=== PATIENT | female | born 1975 | race African-American/Black ===

== ENCOUNTER 2019-01-05 23:42 | Emergency (ER) | payer MEDICAID ==
[~2019-01-05] VITALS: Ht 160 cm; Wt 68.0 kg
[2019-01-05 23:51] VITALS: BP 122/75
== END 2019-01-05 23:43 | disposition left against medical advice (07) ==
LOC: ER 23:42
DX: M25.561 Pain in right knee (principal); Z53.21 Procedure and treatment not carried out due to patient leaving prior to being seen by health care provider

== ENCOUNTER 2019-01-06 03:38 | Emergency (ER) | payer MEDICAID ==
[~2019-01-06] VITALS: Ht 160 cm; Wt 68.0 kg
[2019-01-06] MEDS ORDERED: KETOROLAC 60MG/2ML VIAL IM STA (06:53)
[2019-01-06 08:27] VITALS: BP 120/72
== END 2019-01-06 08:31 | disposition home or self-care (01) ==
LOC: ER 03:38
DX: M25.561 Pain in right knee (principal); J45.909 Unspecified asthma, uncomplicated; F12.10 Cannabis abuse, uncomplicated; Z90.49 Acquired absence of other specified parts of digestive tract; V43.62XA Car passenger injured in collision with other type car in traffic accident, initial encounter; Y93.89 Activity, other specified; Y92.488 Other paved roadways as the place of occurrence of the external cause
CPT/HCPCS: 73562; 99283

== ENCOUNTER 2019-11-03 06:07 | Emergency (ER) | payer MEDICAID, OTHER | END 2019-11-03 06:58 | disposition left against medical advice (07) | LOC: ER 06:07 | DX: Z53.21 Procedure and treatment not carried out due to patient leaving prior to being seen by health care provider (principal) ==

== ENCOUNTER 2020-01-04 01:21 | Emergency (ER) | payer MEDICAID, OTHER ==
[~2020-01-04] VITALS: Ht 160 cm; Wt 75.0 kg
[2020-01-04] MEDS ORDERED: SODIUM CHLORIDE 0.9% 1,000 ML IV ONE (01:56)
[2020-01-04] MEDS ORDERED: DIPHENHYDRAMINE 50MG/ML VIAL IV ONE (02:00)
[2020-01-04] MEDS ORDERED: EPINEPHRINE 1:1000 1 MG/ML AMP SUBCUT ONE (02:00)
[2020-01-04] MEDS ORDERED: METHYLPREDNISOLONE SOD SUCC 125 MG/2 ML VIAL IV ONE (02:00)
[2020-01-04] MEDS ORDERED: ALBUTEROL 6.7GM HFA INHALER ORI ONE (02:00)
[2020-01-04] MEDS ORDERED: ALBUTEROL (0.083%) 2.5MG/3ML NEB HHN STA (02:06)
[2020-01-04 04:52] VITALS: BP 143/75
== END 2020-01-04 04:54 | disposition home or self-care (01) ==
LOC: ER 01:21
DX: J30.81 Allergic rhinitis due to animal (cat) (dog) hair and dander (principal); F12.10 Cannabis abuse, uncomplicated; Z90.49 Acquired absence of other specified parts of digestive tract
CPT/HCPCS: 94640; 96372; 96374; 96375; 99284; J1200; J2930; J3490; J7030; Z7610

== ENCOUNTER 2023-01-14 06:11 | Emergency (ER) | payer MEDICAID ==
[~2023-01-14] VITALS: Ht 160 cm; Wt 84.0 kg
[2023-01-14 06:19] VITALS: BP 144/84
[2023-01-14 07:00] LABS: CHLORIDE 110 mEq/L (98-107)
[2023-01-14 07:04] LABS: EOSINOPHILS % 5.9 % (0.0-5.0); HEMATOCRIT. 38.5 % (36.0-48.0); HEMOGLOBIN. 12.3 g/dL (12.0-16.0); INR 0.9; LYMPHOCYTES % 30.9 % (20.0-50.0); MEAN CORPUSCULAR HEMOGLOBIN 26.1 pg (28.0-32.0); MEAN CORPUSCULAR VOLUME 81.6 fL (81.0-99.0); MEAN PLATELET VOLUME 8.1 fl (7.4-10.4); MONOCYTES % 5.9 % (2.0-8.0); NEUTROPHILS % 56.3 % (40.0-76.0); PLATELET 365 x1000/uL (130-400); PROTHROMBIN TIME 9.9 sec (9.6-11.0); RED BLOOD CELL COUNT 4.72 mill/uL (4.2-5.4); RED CELL DISTRIBUTION WIDTH 14.5 % (11.6-14.6)
== END 2023-01-14 08:33 | disposition left against medical advice (07) ==
LOC: ER 06:11
DX: Z53.21 Procedure and treatment not carried out due to patient leaving prior to being seen by health care provider (principal)
CPT/HCPCS: 36415; 71045; 80053; 84484; 85025; 99281

== ENCOUNTER 2023-04-25 04:24 | Emergency (ER) | payer MEDICAID ==
[~2023-04-25] VITALS: Ht 160 cm; Wt 88.9 kg
[2023-04-25 04:55] LABS: BASOPHILS % 0.5 % (0.0-2.0); DIFFERENTIAL COMMENT 0; EOSINOPHILS % 8.1 % (0.0-5.0); HEMATOCRIT. 32.5 % (36.0-48.0); HEMOGLOBIN. 10.6 g/dL (12.0-16.0); LYMPHOCYTES % 29.5 % (20.0-50.0); MEAN CORPUSCULAR HEMOGLOBIN 24.7 pg (28.0-32.0); MEAN CORPUSCULAR HGB CONC 32.7 g/dL (31.0-37.0); MEAN CORPUSCULAR VOLUME 75.5 fL (81.0-99.0); MEAN PLATELET VOLUME 7.7 fl (7.4-10.4); MONOCYTES % 5.9 % (2.0-8.0); PLATELET 395 x1000/uL (130-400); RED BLOOD CELL COUNT 4.31 mill/uL (4.2-5.4); RED CELL DISTRIBUTION WIDTH 14.8 % (11.6-14.6); WHITE BLOOD COUNT 8.5 x1000/uL (4.5-11.0)
[2023-04-25 05:04] LABS: CHLORIDE 111 mEq/L (98-107); INDEX HEMOLYSI 1 (1-3); INDEX ICTERIC 1 (1-4); INDEX LIPEMIC 1 (1-3); POTASSIUM 3.3 mEq/L (3.5-5.1); SODIUM 140 mEq/L (136-145)
[2023-04-25 05:13] LABS: ALANINE AMINOTRANSFERASE 25 IU/L (13-61); ALBUMIN 3.8 g/dL (3.4-5.0); ASPARTATE AMINOTRANSFERASE 15 IU/L (15-37); BILIRUBIN TOTAL 0.2 mg/dL (0.1-1.0); CALCIUM 8.6 mg/dL (8.5-10.1); CARBON DIOXIDE 24 mEq/L (21-32); CREATININE 0.9 mg/dL (0.6-1.3); GLUCOSE 119 mg/dL (70-105); PROTEIN TOTAL 7.8 g/dL (6.0-8.3); TROPONIN I HIGH SENSITIVITY 4 ng/L (<54); UREA NITROGEN BLOOD 7 mg/dL (7-21)
[2023-04-25 05:14] LABS: INR 0.9; PARTIAL THROMBOPLASTIN TIME 26.8 sec (23.4-31.0)
[2023-04-25] MEDS ORDERED: ALBUTEROL (0.083%) 2.5MG/3ML NEB HHN STA (07:59)
[2023-04-25] MEDS ORDERED: PREDNISONE 20MG TABLET PO STA (07:59)
[2023-04-25] MEDS ORDERED: ALBUTEROL (0.083%) 2.5MG/3ML NEB HHN NR (08:30)
[2023-04-25 08:41] VITALS: PULSE 87; RESP 18; O2SAT 97
[2023-04-25] MEDS ORDERED: P50 MT (08:51)
[2023-04-25] MEDS ORDERED: ALBU6.7H3 INH (08:51)
[2023-04-25] MEDS ORDERED: NEBU-281 MC (09:01)
[2023-04-25] MEDS ORDERED: ALBU05 NEB (09:01)
[2023-04-25 09:10] VITALS: BP 127/83; PULSE 87; RESP 18; TEMP 98.7
== END 2023-04-25 09:17 | disposition home or self-care (01) ==
LOC: ER 04:24
DX: J45.901 Unspecified asthma with (acute) exacerbation (principal); Z91.048 Other nonmedicinal substance allergy status; Z88.5 Allergy status to narcotic agent; Z88.6 Allergy status to analgesic agent
CPT/HCPCS: 80053; 85025; 85610; 85730; 84484; 36415; 71045; 94640; 93005; 99285; J7512; Z7610 ×3; 94664